=== PATIENT | male | born 1995 | race Caucasian/White ===

== ENCOUNTER 2018-07-12 11:03 | Emergency (ER) | payer OTHER ==
[~2018-07-12] VITALS: Ht 167.6 cm; Wt 68.2 kg
[2018-07-12] MEDS ORDERED: ACETAMINOPHEN 325 MG TAB PO ONE (11:45)
[2018-07-12] MEDS ORDERED: ONDANSETRON 4 MG ORAL DISINTEGRATING TAB (Q0162 PER 1MG) PO ONE (11:45)
[2018-07-12 12:23] LABS: INFLUENZA B AMPLIFICATION NEGATIVE (NEGATIVE)
[2018-07-12] MEDS ORDERED: LIDO1SOL7 PO (12:36)
[2018-07-12] MEDS ORDERED: OSEL75CA PO (12:36)
[2018-07-12 12:39] VITALS: BP 115/65
[2018-07-20 15:48] LABS: INFLUENZA A AMPLIFICATION POSITIVE (NEGATIVE)
== END 2018-07-12 12:45 | disposition home or self-care (01) ==
LOC: M ED 11:03
DX: J09.X9 Influenza due to identified novel influenza A virus with other manifestations (principal); J02.9 Acute pharyngitis, unspecified; F17.210 Nicotine dependence, cigarettes, uncomplicated
CPT/HCPCS: 87502; 87880; 99283; Q0162

== ENCOUNTER 2019-07-25 05:27 | Emergency (ER) | payer OTHER ==
[~2019-07-25 05:27] MED LIST: LIDO1SOL8 PO; OSEL75CA PO
[2019-07-25] MEDS ORDERED: IBUPROFEN 600 MG TAB PO ONE (05:45)
[2019-07-25 06:15] LABS: INFLUENZA A AMPLIFICATION NEGATIVE (NEGATIVE); INFLUENZA B AMPLIFICATION NEGATIVE (NEGATIVE)
[2019-07-25] MEDS ORDERED: ONDANSETRON 4 MG ORAL DISINTEGRATING TAB (Q0162 PER 1MG) PO ONE (07:45)
[2019-07-25] MEDS ORDERED: ONDA4TAB6 PO (07:49)
[2019-07-25 07:56] VITALS: BP 116/66
== END 2019-07-25 07:57 | disposition home or self-care (01) ==
LOC: M ED 05:27
DX: J06.9 Acute upper respiratory infection, unspecified (principal); B34.9 Viral infection, unspecified; R11.0 Nausea
CPT/HCPCS: 87502; 87880; 99284; Q0162